=== PATIENT | male | born 1955 | race Caucasian/White ===

== ENCOUNTER 2018-07-12 19:51 | Inpatient (IN) ==
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
[2018-07-12 21:22] LABS: Baso # (Auto) 0.1 th/mm3 (0.0-0.2); Eos # (Auto) 0.2 th/mm3 (0.0-0.4); Eos % (Auto) 3.6 % (0.0-4.0); Hematocrit 40.7 % (39.0-51.0); Hemoglobin 13.8 gm/dL (13.0-17.0); Lymph # (Auto) 1.9 th/mm3 (1.0-4.8); Lymph % (Auto) 27.3 % (9.0-44.0); Mean Corpuscular HGB Conc 33.9 % (32.0-36.0); Mean Corpuscular Hemoglobin 31.7 pg (27.0-34.0); Mean Corpuscular Volume 93.8 fL (80.0-100.0); Mono # (Auto) 0.7 th/mm3 (0.0-0.9); Mono % (Auto) 10.4 % (0.0-8.0); Neut % (Auto) 57.7 % (16.0-70.0); Platelet Count 211 th/mm3 (150-450); Red Blood Count 4.34 mil/mm3 (4.50-5.90); Red Cell Distribution Width 13.1 % (11.6-17.2); White Blood Count 6.9 th/mm3 (4.0-11.0)
[2018-07-12 21:32] LABS: Alanine Aminotransferase 22 U/L (12-78); Albumin 3.7 g/dL (3.4-5.0); Anion Gap 9 meq/L (5-15); Aspartate Aminotransferase 17 U/L (15-37); Blood Urea Nitrogen 18 mg/dL (7-18); Calcium 8.5 mg/dL (8.5-10.1); Carbon Dioxide 29.2 meq/L (21.0-32.0); Chloride 103 meq/L (98-107); Glomerular Filtration Rate 58 mL/min (>89); Glucose,Random 89 mg/dL (74-106); Potassium 3.4 meq/L (3.5-5.1); Sodium 141 meq/L (136-145)
[2018-07-12 21:35] LABS: Alkaline Phosphatase 75 U/L (45-117); Total Protein 7.3 g/dL (6.4-8.2)
[2018-07-12 21:44] LABS: Activated Partial Thrombo Time 29.4 sec (24.3-30.1); Prothrombin Time 10.6 sec (9.8-11.6)
--- NOTE | 2018-07-12 21:47 | MR ---
EXAM DATE: 07/12/2018 9:31 PM EDT AGE/SEX: 62 years / Male INDICATIONS: Right sided weakness. Ataxia. Cognitive deficts. CLINICAL DATA: This is the patient's initial encounter. Patient reports that signs and symptoms have been present for 1 month and indicates a pain score of 3/10. MEDICAL/SURGICAL HISTORY: None. Umbilical hernia repair. COMPARISON: . TECHNIQUE: Multiplanar, multisequence examination of the brain was performed without contrast. FINDINGS: Bilateral cerebral convexity subdural hematomas are present that measure approximately 1.5 cm in maxi mal thickness on the left and 0.8 cm in maximal thickness on the right. The left hematoma appears sub acute to chronic. The right hematoma appears subacute but probably more recent than the left. There i s approximately 4 mm of rightward midline shift. Brain parenchyma is within normal limits. No mass lesions are demonstrated. No restricted diffusion. The cerebellum is normal. CONCLUSION: 1. Subacute appearing right and subacute to chronic appearing left subdural hematomas as described. The hematomas are left larger than right and there is associated 4 mm of rightward midline shift. 2. No infarct, parenchymal hemorrhage or other intra-axial abnormality of the brain. Electronically signed by: Speedy Ford MD 07/12/2018 9:46 PM EDT
[2018-07-12] MEDS ORDERED: HYDROmorphone PF Inj 2 MG/ML Vial IV.PUSH ONE (21:48)
--- NOTE | 2018-07-12 21:49 | MR ---
EXAM DATE: 07/12/2018 9:30 PM EDT AGE/SEX: 62 years / Male INDICATIONS: Right sided weakness. Cognitive deficit. Ataxia. CLINICAL DATA: This is the patient's initial encounter. Patient reports that signs and symptoms have been present for 1 month and indicates a pain score of 3/10. MEDICAL/SURGICAL HISTORY: None. Umbilical hernia repair. COMPARISON: [facility] [place] W/O CONTRAST, 07/12/2018. . TECHNIQUE: 3D [id number] MRA was performed. Source images, multiplanar STS MIP, and 3D volum e MIP reconstructions were reviewed. FINDINGS: There is excellent visualization of the major intracranial arteries out to the second-order branch ve ssels. There is no evidence for aneurysm, vessel truncation or stenosis, and no evidence for vascula r malformation. CONCLUSION: Normal intracranial arteries. Electronically signed by: Speedy Ford MD 07/12/2018 9:48 PM EDT
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
[2018-07-12] MEDS ORDERED: Bisacodyl 10 MG Supp RECTAL PRN (23:15)
[2018-07-12] MEDS ORDERED: Morphine Sulfate Inj 2 MG/ML Vial IV.PUSH PRN (23:15)
[2018-07-12] MEDS ORDERED: Labetalol HCl Inj 100 MG/20 ML Vial IV.PUSH PRN (23:19)
[2018-07-12] MEDS ORDERED: hydrALAZINE HCl Inj 20 MG/ML Vial IV.PUSH PRN (23:20)
[2018-07-12] MEDS ORDERED: LORazepam 0.5 MG Tablet PO ONE (23:21)
[2018-07-12] MEDS ORDERED: niCARdipine Inj 25 MG in Sodium Chlor 0.9% Inj 240 ML IV.CONT PRN (23:21)
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
[2018-07-12] MEDS ORDERED: Sodium Phosphate Inj 30 MMOL in Sodium Chlor 0.9% Inj 250 ML IV.SIG PRN (23:23)
[2018-07-12] MEDS ORDERED: Dextrose 50% in Water 50 ML Vial IV.PUSH PRN (23:23)
[2018-07-12] MEDS ORDERED: Potassium Phosphate Inj 30 MMOL in Sodium Chlor 0.9% Inj 250 ML IV.SIG PRN (23:23)
[2018-07-12] MEDS ORDERED: Potassium Chloride 25 MEQ Effervescent Tablet PO PRN (23:23)
[2018-07-12] MEDS ORDERED: Potassium Phosphate 500 MG Soluble Tablet PO PRN ×2 (23:23)
[2018-07-12] MEDS ORDERED: Potassium Chlor 20 mEq Premix 20 MEQ/100 ML PIGGYBACK IV.SIG PRN ×2 (23:23)
[2018-07-12] MEDS ORDERED: Magnesium Sulfate Inj 4 GM in Sodium Chlor 0.9% Inj 92 ML IV.SIG PRN (23:23)
[2018-07-12] MEDS ORDERED: Potassium Chlor 40 mEq Premix 40 MEQ/100 ML PIGGYBACK IV.SIG PRN ×2 (23:23)
[2018-07-12] MEDS ORDERED: Magnesium Sulfate Inj 2 GM in Sodium Chlor 0.9% Inj 96 ML IV.SIG PRN (23:23)
[2018-07-12] MEDS ORDERED: Magnesium Oxide 400 MG Tablet PO PRN (23:23)
[2018-07-13] MEDS: Sod Chloride 0.9% Inj 1,000 ML IV.CONT SCH ×3 (00:29→23:49)
[2018-07-13 03:49] LABS: Baso % (Auto) 0.4 % (0.0-2.0); Eos % (Auto) 0.6 % (0.0-4.0); Lymph # (Auto) 0.8 th/mm3 (1.0-4.8); Lymph % (Auto) 10.6 % (9.0-44.0); Mean Corpuscular HGB Conc 34.9 % (32.0-36.0); Mean Corpuscular Hemoglobin 32.2 pg (27.0-34.0); Mean Corpuscular Volume 92.3 fL (80.0-100.0); Mean Platelet Volume 8.9 fL (7.0-11.0); Mono # (Auto) 0.2 th/mm3 (0.0-0.9); Mono % (Auto) 2.9 % (0.0-8.0); Neut # (Auto) 6.3 th/mm3 (1.8-7.7); Neut % (Auto) 85.5 % (16.0-70.0); Platelet Count 200 th/mm3 (150-450); Red Blood Count 4.34 mil/mm3 (4.50-5.90); Red Cell Distribution Width 12.7 % (11.6-17.2); White Blood Count 7.4 th/mm3 (4.0-11.0)
[2018-07-13 04:00] LABS: Activated Partial Thrombo Time 28.7 sec (24.3-30.1); INR 1.1 Ratio; Prothrombin Time 10.7 sec (9.8-11.6)
[2018-07-13] MEDS ORDERED: Chlorhexidine Gluconate 2% 1 Pack (2 Cloths) TOPICAL PRN (04:00)
[2018-07-13 04:09] LABS: Alanine Aminotransferase 25 U/L (12-78); Albumin 3.7 g/dL (3.4-5.0); Anion Gap 9 meq/L (5-15); Aspartate Aminotransferase 15 U/L (15-37); Blood Urea Nitrogen 19 mg/dL (7-18); Calcium 8.9 mg/dL (8.5-10.1); Carbon Dioxide 28.5 meq/L (21.0-32.0); Chloride 106 meq/L (98-107); Glomerular Filtration Rate 64 mL/min (>89); Glucose,Random 121 mg/dL (74-106); Magnesium 2.1 mg/dL (1.5-2.5); Phosphorus 1.7 mg/dL (2.5-4.9); Potassium 3.7 meq/L (3.5-5.1); Sodium 143 meq/L (136-145)
[2018-07-13 04:11] LABS: Alkaline Phosphatase 78 U/L (45-117); Total Protein 7.4 g/dL (6.4-8.2)
--- NOTE | 2018-07-13 06:34 | XR ---
EXAM DATE: 07/13/2018 5:50 AM EDT AGE/SEX: 62 years / Male INDICATIONS: Shortness of breath. CLINICAL DATA: This is the patient's initial encounter. Patient reports that signs and symptoms have been present for 1 day and indicates a pain score of 0/10. MEDICAL/SURGICAL HISTORY: None. . Umbilical hernia repair. COMPARISON: No prior exams available for comparison. FINDINGS: A single AP view of the chest demonstrates the lungs to be symmetrically aerated without evidence of mass, infiltrate or effusion. The cardiomediastinal contours are unremarkable. Osseous structures a re intact. CONCLUSION: No acute findings. Electronically signed by: Nav Mustafa MD 07/13/2018 6:32 AM EDT
[2018-07-13] MEDS ORDERED: Lidocaine 1%/Epinephrine 1:100,000 Inj 20 ML Vial ONE (07:15)
[2018-07-13] MEDS ORDERED: Thrombin Topical Soln 5,000 UNIT Vial TOPICAL ONE (07:15)
[2018-07-13] MEDS ORDERED: Gelatin Size 100 Topical Foam ONE (07:16)
[2018-07-13] MEDS ORDERED: ceFAZolin 2 GM Premix Inj 2 GM/50 ML PIGGYBACK IV.SIG ONE (08:27)
[2018-07-13] MEDS ORDERED: Labetalol HCl Inj 100 MG/20 ML Vial IV.CONT ONE (08:30)
[2018-07-13] MEDS ORDERED: Lidocaine PF 1% Inj 5 ML Syringe INFILTRATN ONE (08:30)
[2018-07-13] MEDS ORDERED: Phenylephrine/NS 1000 MCG/10ML Syringe IV.PUSH ONE (08:30)
[2018-07-13] MEDS ORDERED: Famotidine PF Inj 20 MG/2 ML Vial ONE (08:32)
[2018-07-13] MEDS ORDERED: Sugammadex Inj 200 MG/2 ML Vial IV.PUSH ONE (08:50)
[2018-07-13] MEDS ORDERED: Senna/Docusate Sodium 8.6/50 MG Tablet PO SCH (09:00)
[2018-07-13] MEDS ORDERED: Bisacodyl 10 MG Supp RECTAL PRN (10:54)
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
[2018-07-13] MEDS ORDERED: fentaNYL Citrate Inj 100 MCG/2 ML Ampul ONE (11:13)
[2018-07-13] MEDS ORDERED: *Ondansetron Inj 4 MG/2 ML Vial PERIprocedural Use ONLY ONE (11:17)
--- NOTE | 2018-07-13 11:37 | ECG ---
Date Performed: 07/12/2018 Time Performed: 23:05:26 PTAGE: 62 years EKG: Sinus rhythm INCOMPLETE RIGHT BUNDLE BRANCH BLOCK BORDERLINE ECG NO PREVIOUS TRACING DOCTOR: Reid Madison Interpretating Date/Time 07/13/2018 11:35:16
[2018-07-13] MEDS: Insulin NovoLOG Aspart Correctional Sugar Inj SQ SCH ×2 (12:42→18:11)
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
[2018-07-13] MEDS: Pantoprazole Inj 40 MG Vial IV.PUSH SCH (13:50)
[2018-07-13] MEDS ORDERED: HYDROmorphone PF Inj 1 MG/50 ML BAG IV.SIG ONE (14:34)
[2018-07-13] MEDS: HYDROmorphone PF Inj 2 MG/ML Vial IV.PUSH PRN ×2 (15:03→20:52)
[2018-07-13] MEDS ORDERED: HYDROmorphone PF Inj 2 MG/ML Vial IV.PUSH ONE (16:45)
[2018-07-13] MEDS: ceFAZolin 2 GM Premix Inj 2 GM/100 ML BAG IV.SIG SCH (18:11)
[2018-07-13] MEDS: Senna/Docusate Sodium 8.6/50 MG Tablet PO SCH (23:48)
[2018-07-14] MEDS: ceFAZolin 2 GM Premix Inj 2 GM/100 ML BAG IV.SIG SCH ×2 (00:45→09:30)
[2018-07-14] MEDS: Insulin NovoLOG Aspart Correctional Sugar Inj SQ SCH ×4 (00:58→21:49)
[2018-07-14] MEDS: Chlorhexidine Gluconate 2% 1 Pack (2 Cloths) TOPICAL SCH (06:45)
[2018-07-14 06:52] LABS: Baso % (Auto) 0.1 % (0.0-2.0); Hemoglobin 12.6 gm/dL (13.0-17.0); Mean Corpuscular Hemoglobin 31.6 pg (27.0-34.0); Mean Platelet Volume 9.1 fL (7.0-11.0); Mono # (Auto) 0.7 th/mm3 (0.0-0.9); Mono % (Auto) 5.2 % (0.0-8.0); Neut # (Auto) 12.1 th/mm3 (1.8-7.7); Neut % (Auto) 87.7 % (16.0-70.0); Platelet Count 218 th/mm3 (150-450); Red Blood Count 3.98 mil/mm3 (4.50-5.90); Red Cell Distribution Width 12.7 % (11.6-17.2); White Blood Count 13.8 th/mm3 (4.0-11.0)
[2018-07-14 07:19] LABS: Calcium 7.9 mg/dL (8.5-10.1); Carbon Dioxide 23.1 meq/L (21.0-32.0); Potassium 3.7 meq/L (3.5-5.1)
[2018-07-14] MEDS: Senna/Docusate Sodium 8.6/50 MG Tablet PO SCH ×2 (08:39→20:08)
[2018-07-14] MEDS: Acetaminophen 325 MG Tablet PO PRN ×2 (08:39→14:10)
[2018-07-14] MEDS: Pantoprazole Inj 40 MG Vial IV.PUSH SCH (09:30)
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
[2018-07-14] MEDS: Sod Chloride 0.9% Inj 1,000 ML IV.CONT SCH (12:45)
[2018-07-14] MEDS: levETIRAcetam 500 MG Tablet PO SCH (20:08)
[2018-07-15] MEDS: Insulin NovoLOG Aspart Correctional Sugar Inj SQ SCH ×4 (03:17→18:37)
[2018-07-15] MEDS: Chlorhexidine Gluconate 2% 1 Pack (2 Cloths) TOPICAL SCH (04:22)
--- NOTE | 2018-07-15 05:21 | CT ---
EXAM DATE: 07/15/2018 4:44 AM EDT AGE/SEX: 62 years / Male INDICATIONS: Evaluate subdural hemorrhage. CLINICAL DATA: This is the patient's initial encounter. Patient reports that signs and symptoms have been present for 1 day and indicates a pain score of 5/10. MEDICAL/SURGICAL HISTORY: Non-responsive. Non-responsive. RADIATION DOSE: 56.35 CTDI (mGy) COMPARISON: [facility] [place], MR HEAD W/O CONTRAST, 07/12/2018. . TECHNIQUE: CT of the head without contrast. Using automated exposure control and adjustment of the mA and/or kV according to patient size, radiation dose was kept as low as reasonably achievable to ob tain optimal diagnostic quality images. DICOM format image data is available electronically for revi ew and comparison. FINDINGS: There are bilateral mixed density subdural hematomas with bilateral surgical drains in place and ante rior pneumocephalus. Left subdural collection measures up to 14 mm and the right fluid collection shy sures up to 8 mm. This is essentially unchanged on the right and subtly improved on the left from zakia or MRI examination. There is slightly improved [id number] subfalcine shift of [address] Chairez-white mat ter differentiation is maintained with prominent cerebral atrophy for patient's age. Ventricles are s table in size without hydrocephalus. Brainstem and cerebellum are intact. Remainder of the exam is un changed. CONCLUSION: 1. Subtle improvement of left subdural hematoma now measuring 14 mm with minimally improved left-to- right subfalcine shift now measuring 2 mm. 2. Stable right subdural hematoma measuring 8 mm. 3. No intercurrent parenchymal hemorrhage or hydrocephalus. . Electronically signed by: Hieu De Dios MD 07/15/2018 5:20 AM EDT
[2018-07-15] MEDS: Senna/Docusate Sodium 8.6/50 MG Tablet PO SCH ×2 (08:44→20:13)
[2018-07-15] MEDS: Acetaminophen 325 MG Tablet PO PRN (08:45)
[2018-07-15] MEDS: levETIRAcetam 500 MG Tablet PO SCH ×2 (08:45→20:12)
[2018-07-15] MEDS: Pantoprazole Inj 40 MG Vial IV.PUSH SCH (08:45)
[2018-07-15] MEDS: HYDROmorphone PF Inj 2 MG/ML Vial IV.PUSH PRN ×3 (09:53→20:12)
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
[2018-07-16] MEDS: Insulin NovoLOG Aspart Correctional Sugar Inj SQ SCH ×2 (02:22→07:58)
[2018-07-16] MEDS: Chlorhexidine Gluconate 2% 1 Pack (2 Cloths) TOPICAL SCH (06:03)
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
[2018-07-16] MEDS: Pantoprazole Inj 40 MG Vial IV.PUSH SCH (09:19)
[2018-07-16] MEDS: Acetaminophen 325 MG Tablet PO PRN (09:19)
[2018-07-16] MEDS: Senna/Docusate Sodium 8.6/50 MG Tablet PO SCH ×2 (09:20→21:24)
[2018-07-16] MEDS: levETIRAcetam 500 MG Tablet PO SCH ×2 (09:20→21:24)
--- NOTE | 2018-07-16 10:32 | CT ---
EXAM DATE: 07/16/2018 10:27 AM EDT AGE/SEX: 62 years / Male INDICATIONS: Follow up, post operative cranial surgery. CLINICAL DATA: This is the patient's subsequent encounter. Patient reports that signs and symptoms h ave been present for 1 day and indicates a pain score of 0/10. MEDICAL/SURGICAL HISTORY: None. Craniotomy. Hernia repair. RADIATION DOSE: 40.58 CTDI (mGy) [place] [facility] [place]. . TECHNIQUE: CT of the head without contrast. Using automated exposure control and adjustment of the mA and/or kV according to patient size, radiation dose was kept as low as reasonably achievable to ob tain optimal diagnostic quality images. DICOM format image data is available electronically for revi ew and comparison. FINDINGS: There are again noted bilateral subdural mixed attenuation collections and pneumocephalus noted anter iorly. There are radha holes in the bifrontal regions with overlying skin geo and subdural drains. There is mass effect on the left frontal lobe from the subdural collection and to a lesser extent ri ght frontal lobe. Maximal transverse width of 1.1 cm on the right and 0.9 cm on the left. CONCLUSION: 1. Bilateral subdural hematomas with subdural drains in place and pneumocephalus again seen. There r emains mild mass effect on the bilateral frontal lobes and no significant midline shift. . Electronically signed by: Obie Brady MD 07/16/2018 10:31 AM EDT
--- NOTE | 2018-07-16 11:45 | P.PNNS ---
Subjective Interval history: Right side drain unkinked twice yesterday with large output following and subsequent headache Left drain not putting out much overnight Head CT obtained this morning improved and patient doing very well. Decision to remove both drains today (stitched the right) Physical Exam Vital signs: Vital Signs 07/15/18 12:00 07/15/18 16:00 07/15/18 19:30 Temperature 97.9 F 97.5 F L Pulse Rate 64 54 L Respiratory Rate 22 24 Blood Pressure 114/77 135/72 Pulse Oximetry 97 07/15/18 20:00 07/16/18 00:00 07/16/18 04:00 Temperature 98.1 F 97.2 F L 97.2 F L Pulse Rate 68 56 L 54 L Respiratory Rate 14 13 20 Blood Pressure 141/80 H 148/80 H 143/69 H Pulse Oximetry 100 07/16/18 08:00 07/16/18 08:24 Temperature 98.2 F Pulse Rate 69 Respiratory Rate 16 Blood Pressure 144/85 H Pulse Oximetry 93 L Intake & Output 07/15/18 07/16/18 07/16/18 18:59 06:59 18:59 Intake Total 240 / 240 320 / 320 Output Total 200 / 200 25 / 25 Balance 40 / 40 295 / 295 Weight 100.4 kg Intake: Oral 240 / 240 320 / 320 Output: Stool 0 / 0 0 / 0 Wound Drainage 200 / 200 25 / 25 # 1 Right Head 180 / 180 5 / 5 # 2 Left Head 20 / 20 20 / 20 Other: # Voids 3 3 Narrative: Dr Dominguez is awake. Comfortable, in no acute distress. Speech is fluent Cranial nerve examination: pupils to be equal, round and reactive to light. Extra-ocular movements are intact. Facial motor and sensory function are normal and symmetrical. Gross hearing appears intact. Sternocleidomastoid and trapezius muscles are symmetrical. Other cranial nerves are intact. Neck is soft and supple with a good range of motion without pain. Muscle strength is normal in all muscle groups of left upper and lower extremities, 4/5 in right upper extremity, 3+/5 right lower extremity. Sensory examination is intact to light touch and pin prick in both the upper and lower extremities. Deep tendon reflexes are symmetrical in both upper and lower extremities. There is a bilateral plantar flexion response. Cerebellar examination is unremarkable, without deficits. Lungs are clear Heart regular rhythm is regular rate Skin warm and dry Both incisions c/d/i Right drain clear fluid, left not much in container - Urinary Catheter Management Indwelling Urethral Catheter Cath placed during this visit: yes Reason for continuing: Hourly intake/output Insertion date: 07/13/18 Insertion time: 09:00 Assessment and Plan - Plan 62yoM s/p right craniotomy and left burrhole drainage on 07/13. HCT (07/16) looked improved and therefore both drains removed (right was mostly CSF and left not putting out much). Stitched the right but not required on the left. Will monitor today in ICU status and consider transfer to floor tomorrow Continue Keppra, neuro checks. Advance activity as tolerated.
[2018-07-17 06:29] VITALS: RESP 18
[2018-07-17] MEDS: Chlorhexidine Gluconate 2% 1 Pack (2 Cloths) TOPICAL SCH (06:36)
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
[2018-07-17] MEDS: Acetaminophen 325 MG Tablet PO PRN (09:10)
[2018-07-17] MEDS: levETIRAcetam 500 MG Tablet PO SCH (09:10)
[2018-07-17] MEDS: Senna/Docusate Sodium 8.6/50 MG Tablet PO SCH (09:10)
[2018-07-17] MEDS: Pantoprazole Inj 40 MG Vial IV.PUSH SCH (09:13)
--- NOTE | 2018-07-17 10:53 | P.PNNS ---
Subjective Interval history: Doing well. One episode of headache last evening. Ambulating and doing well. One episode of SBP up to 140-150, not concerning. Physical Exam Vital signs: Vital Signs 07/16/18 12:30 07/16/18 16:00 07/16/18 20:00 Temperature 97.9 F 98.2 F 98.3 F Pulse Rate 53 L 59 L 68 Respiratory Rate 16 18 18 Blood Pressure 132/72 127/69 146/76 H Pulse Oximetry 96 100 99 07/17/18 00:00 07/17/18 04:00 07/17/18 08:00 Temperature 98.5 F 97.9 F Pulse Rate 57 L 56 L Respiratory Rate 14 18 Blood Pressure 148/75 H 144/66 H Pulse Oximetry 97 97 Intake & Output 07/16/18 07/17/18 07/17/18 18:59 06:59 18:59 Intake Total 240 / 240 Output Total 0 / 0 Balance 240 / 240 Weight 99.7 kg Intake: Oral 240 / 240 Output: Stool 0 / 0 Other: # Voids 5 3 Narrative: Dr Dominguez is awake. Comfortable, in no acute distress. Speech is fluent Cranial nerve examination: pupils to be equal, round and reactive to light. Extra-ocular movements are intact. Facial motor and sensory function are normal and symmetrical. Gross hearing appears intact. Sternocleidomastoid and trapezius muscles are symmetrical. Other cranial nerves are intact. Neck is soft and supple with a good range of motion without pain. Muscle strength is normal in all muscle groups of left upper and lower extremities, 4/5 in right upper extremity, 3+/5 right lower extremity. Sensory examination is intact to light touch and pin prick in both the upper and lower extremities. Deep tendon reflexes are symmetrical in both upper and lower extremities. There is a bilateral plantar flexion response. Cerebellar examination is unremarkable, without deficits. Lungs are clear Heart regular rhythm is regular rate Skin warm and dry All drains out-- Incisions c/d/i - Urinary Catheter Management Indwelling Urethral Catheter Cath placed during this visit: yes Reason for continuing: Hourly intake/output Insertion date: 07/13/18 Insertion time: 09:00 Assessment and Plan - Plan 62yoM s/p right craniotomy and left burrhole drainage on 07/13. HCT (07/16) looked improved and therefore both drains removed (right was mostly CSF and left not putting out much). Drains out-- D/w Dr. Salamanca-- Ok to discharge to home with [place] to complete 2 weeks and [place] prn for pain. Close follow-up with Dr. Salamanca likely 2 weeks from surgery for wound check, possible repeat CT at that time.
[2018-07-17 10:58] VITALS: PULSE 57; TEMP 98.7; O2SAT 100
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
[2018-07-17 13:18] VITALS: BP 147/80
== END 2018-07-17 13:38 | disposition home or self-care (01) ==
LOC: NEPD 19:51 → NEDA 21:39 → N03 23:38
PROVIDERS: ADMIT Internal Medicine Critical Care Medicine; ATTEND Internal Medicine Critical Care Medicine
PROC: CRASUBD (ICD-10-PCS; 2018-07-13 08:39)